=== PATIENT | male | born 1950 | race Caucasian/White ===

== ENCOUNTER 2017-08-30 14:40 | Inpatient (IN) | payer OTHER, MEDICARE ==
[~2017-08-30] VITALS: Ht 177.8 cm; Wt 75.0 kg
[2017-08-30 14:49] VITALS: BP 148/61; PULSE 75; RESP 18; TEMP 98; O2SAT 97
--- NOTE | 2017-08-30 15:02 | PD ---
HPI Chief Complaint: Alcohol/Drug Intoxication Time Seen by Provider: 14:58 Travel History International Travel<30 days: No Contact w/Intl Traveler<30days: No Traveled to known affect area: No History of Present Illness HPI This patient is brought in by paramedics. He is a alcoholic who drinks on a daily basis. He was drinking a lot of drinks today and stumbling around the beach and some bystanders called paramedics. He has no complaints. He admits to drinking heavily. He denies intentional overdose or any drug use. He denies injury other than abrasions to his knees. He has no knee pain. Symptom severity is mild. No alleviating factors. Symptoms exacerbated by his alcoholism. Duration 1 day PFS Social History Alcohol Use: Yes Tobacco Use: Yes Allergies-Medications (Allergen,Severity, Reaction): Coded Allergies: No Known Allergies (Unverified , 08/30/17) Reported Meds & Prescriptions Reported Meds & Active Scripts Active No Active Prescriptions or Reported Medications Review of Systems General / Constitutional: No: Fever Eyes: No: Visual changes HENT: No: Headaches Cardiovascular: No: Chest Pain or Discomfort Respiratory: No: Shortness of Breath Gastrointestinal: No: Abdominal Pain Genitourinary: No: Dysuria Musculoskeletal: No: Pain Skin: No Rash Neurologic: No: Weakness Psychiatric: Positive: Substance Abuse, No: Depression Endocrine: No: Polydipsia Hematologic/Lymphatic: No: Easy Bruising Physical Exam Narrative GENERAL: Disheveled reduced well-developed patient in no apparent distress. SKIN: Focused skin assessment reveals no rash and nodules. Skin is Warm and dry. HEAD: Atraumatic. Normocephalic. EYES: Pupils equal and round. No scleral icterus. No injection or drainage. ENT: No nasal bleeding or discharge. Mucous membranes pink and moist. NECK: Trachea midline. No JVD. No midline tenderness CARDIOVASCULAR: Regular rate and rhythm. No murmur appreciated. RESPIRATORY: No accessory muscle use. Clear to auscultation. Breath sounds equal bilaterally. GASTROINTESTINAL: Abdomen soft, non-tender, nondistended. Hepatic and splenic margins not palpable. MUSCULOSKELETAL: No obvious deformities. No clubbing. No cyanosis. No edema. Minor abrasions to both knees without tenderness NEUROLOGICAL: Awake and alert. No obvious cranial nerve deficits. Motor grossly within normal limits. Normal speech. PSYCHIATRIC: Appropriate mood and affect; insight and judgment reduced. Data Data Last Documented VS Vital Signs Date Time Temp Pulse Resp B/P (MAP) Pulse Ox O2 Delivery O2 Flow Rate FiO2 08/30/17 14:49 98.0 75 18 148/61 (90) 97 MDM Medical Decision Making Medical Screen Exam Complete: Yes Emergency Medical Condition: Yes Medical Record Reviewed: Yes Differential Diagnosis Alcohol intoxication, alcoholism, malingering Narrative Course I have reviewed the patient's electronic medical record. Patient appears somewhat intoxicated and by his admission was drinking. This is his usual behavior. He denies any complaint or injury or pain. I do not see much indication for significant emergency workup at this time I am going to allow him to sleep in the ER for a while to sober up. When he can properly walk and talk he will be discharged Will be advised to consider [facility] alcohol rehab services and follow- up with primary care Diagnosis Primary Impression: Alcohol intoxication Qualified Codes: F10.929 - Alcohol use, unspecified with intoxication, unspecified Additional Instructions: The patient was advised to follow up with their physician and return if they worsen. Avoid alcohol binging Consider [facility] alcohol rehab services Med/Other Pt SpecificInfo: Other Scripts No Active Prescriptions or Reported Meds Disposition: 01 DISCHARGE HOME Condition: Stable Juan C Hernandez MD Aug 30, 2017 15:02
--- NOTE | 2017-08-30 16:43 | RADRPT ---
EXAM DATE/TIME: 08/30/2017 16:18 [facility] COMPARISON: No previous studies available for comparison. INDICATIONS : Pt states he does not remember any trauma and that "he was just trying to have a good time but does n ot remeber what might have happened". MEDICAL HISTORY : None. SURGICAL HISTORY : None. ENCOUNTER: Initial ACUITY: 1 day PAIN SCORE: 10/10 LOCATION: Right chest Ribs. FINDINGS: Multiple views of the right ribs were performed. There is right 7 through 10 rib fractures. No dest ructive lesions or areas of periosteal thickening are seen. Expiratory view of the chest is negative for pneumothorax. The mediastinal structures are midline. CONCLUSION: Right 7 through 10 rib fractures. No pneumothorax. Jassi Crews MD on August 30, 2017 at 16:39 Board Certified Radiologist. This report was verified electronically.
[2017-08-30] MEDS ORDERED: MORPHINE SULFATE 2 MG/ML SYRINGE IV PUSH ONE (17:15)
[2017-08-30 17:26] VITALS: BP 162/70; PULSE 79; RESP 18; O2SAT 97
[2017-08-30 17:27] LABS: AUTOMATED NEUTROPHIL # 8.9 TH/MM3 (1.8-7.7); BASOPHIL # 0.2 TH/MM3 (0-0.2); BASOPHIL % 1.4 % (0.0-2.0); EOSINOPHIL # 0.1 TH/MM3 (0-0.4); EOSINOPHIL % 0.7 % (0.0-4.0); HEMATOCRIT 38.4 % (39.0-51.0); HEMOGLOBIN 12.8 GM/DL (13.0-17.0); LYMPHOCYTE # 1.3 TH/MM3 (1.0-4.8); MEAN CELL VOLUME 93.3 FL (80.0-100.0); MEAN CORPUSCULAR HGB CONC 33.2 % (32.0-36.0); MEAN PLATELET VOLUME 7.6 FL (7.0-11.0); MONO % 3.8 % (0.0-8.0); MONOCYTE # 0.4 TH/MM3 (0-0.9); NEUT % 82.1 % (16.0-70.0); PLATELET COUNT 418 TH/MM3 (150-450); RED BLOOD COUNT 4.11 MIL/MM3 (4.50-5.90); RED CELL DISTRIBUTION WIDTH 19.6 % (11.6-17.2); WHITE BLOOD COUNT 10.8 TH/MM3 (4.0-11.0)
[2017-08-30 17:36] LABS: PROTHROMBIN TIME - PATIENT 10.2 SEC (9.8-11.6)
[2017-08-30 17:47] LABS: ALBUMIN 3.8 GM/DL (3.4-5.0); ALT (GPT) 23 U/L (12-78); AST (GOT) 25 U/L (15-37); BICARBONATE 21.6 MEQ/L (21.0-32.0); BLOOD UREA NITROGEN 11 MG/DL (7-18); CALCIUM 8.6 MG/DL (8.5-10.1); CHLORIDE 110 MEQ/L (98-107); CREATININE 0.95 MG/DL (0.60-1.30); GLOMERULAR FILTRATION RATE 79 ML/MIN (>89); GLUCOSE,RANDOM 91 MG/DL (74-106); SODIUM (NA) 142 MEQ/L (136-145)
[2017-08-30 17:51] LABS: ALKALINE PHOSPHATASE 66 U/L (45-117); TOTAL BILIRUBIN ADULT 0.1 MG/DL (0.2-1.0); TOTAL PROTEIN 7.6 GM/DL (6.4-8.2)
[2017-08-30] MEDS ORDERED: IOHEXOL 350 MG/ML 10 ML VIAL (for RAD DIAG) IVCONTRAST ONE (18:43)
--- NOTE | 2017-08-30 19:02 | RADRPT ---
EXAM DATE/TIME: 08/30/2017 18:37 [facility] COMPARISON: RIBS RIGHT(W PA CXR MIN 3VWS), August 30, 2017, 16:18. INDICATIONS : Trauma; fall. IV CONTRAST: 96 cc Omnipaque 350 (iohexol) IV ; Cumulative dose for multiple exams. ORAL CONTRAST: No oral contrast ingested. RADIATION DOSE: 7.46 CTDIvol (mGy) ; Combined studies - Thorax/Abdomen/Pelvis MEDICAL HISTORY : None SURGICAL HISTORY : None. ENCOUNTER: Initial ACUITY: 1 day PAIN SCALE: 5/10 LOCATION: abdomen TECHNIQUE: Volumetric scanning of the abdomen and pelvis was performed. Using automated exposure control and ad justment of the mA and/or kV according to patient size, radiation dose was kept as low as reasonably achievable to obtain optimal diagnostic quality images. DICOM format image data is available electro nically for review and comparison. FINDINGS: LOWER LUNGS: The visualized lower lungs are clear. LIVER: Homogeneous density without lesion. There is no dilation of the biliary tree. No calcified gallston es. SPLEEN: Normal size without lesion. PANCREAS: Within normal limits. KIDNEYS: Normal in size and shape. There is no mass, stone or hydronephrosis on the left. Nonobstructing 5 mm calculus.. ADRENAL GLANDS: Within normal limits. VASCULAR: There is no aortic aneurysm. BOWEL/MESENTERY: The stomach, small bowel, and colon demonstrate no acute abnormality. There is no free intraperitone al air or fluid. ABDOMINAL WALL: Within normal limits. RETROPERITONEUM: There is no lymphadenopathy. BLADDER: No wall thickening or mass. REPRODUCTIVE: Within normal limits. INGUINAL: There is no lymphadenopathy or hernia. MUSCULOSKELETAL: Lower right-sided rib fractures. CONCLUSION: 1. No abdominal visceral injury. 2. Lower right-sided rib fractures. 3. Nonobstructing right renal calculus. Jassi Crews MD on August 30, 2017 at 18:56 Board Certified Radiologist. This report was verified electronically.
--- NOTE | 2017-08-30 19:06 | RADRPT ---
EXAM DATE/TIME: 08/30/2017 18:37 [facility] COMPARISON: RIBS RIGHT(W PA CXR MIN 3VWS), August 30, 2017, 16:18. No previous studies available for comparison. INDICATIONS : Trauma; fall. IV CONTRAST: 96 cc Omnipaque 350 (iohexol) IV ; Cumulative dose for multiple exams. RADIATION DOSE: 7.46 CTDIvol (mGy) ; Combined studies - Thorax/Abdomen/Pelvis MEDICAL HISTORY : None SURGICAL HISTORY : None. ENCOUNTER: Initial ACUITY: 1 day PAIN SCALE: 5/10 LOCATION: chest TECHNIQUE: Volumetric scanning of the chest was performed. Using automated exposure control and adjustment of t he mA and/or kV according to patient size, radiation dose was kept as low as reasonably achievable to obtain optimal diagnostic quality images. DICOM format image data is available electronically for review and comparison. Follow-up recommendations for detected pulmonary nodules are based at a minimum on nodule size and pa tient risk factors according to Fleischner Society Guidelines. FINDINGS: LUNGS: There is no consolidation or pneumothorax. No concerning pulmonary nodule is visualized. PLEURA: There is no pleural thickening or pleural effusion. MEDIASTINUM: The heart and great vessels demonstrate no acute abnormality. There is no mediastinal or hilar lymph adenopathy. Coronary artery calcifications. AXILLAE: Within normal limits. No lymphadenopathy. SKELETAL: Within normal limits for patient age. MISCELLANEOUS: Right-sided rib fractures including displaced right seventh rib fracture. CONCLUSION: 1. Right sided rib fractures. 2. No pneumothorax. Jassi Crews MD on August 30, 2017 at 19:00 Board Certified Radiologist. This report was verified electronically.
--- NOTE | 2017-08-30 19:19 | PD ---
Data Data Last Documented VS Vital Signs Date Time Temp Pulse Resp B/P (MAP) Pulse Ox O2 Delivery O2 Flow Rate FiO2 08/30/17 17:26 79 18 162/70 (100) 97 Room Air 08/30/17 14:49 98.0 Orders Orders Ribs, Uni (W/Exp Cxr-Min 3vw) (08/30/17 16:04) Iv Access Insert/Monitor (08/30/17 17:05) Complete Blood Count With Diff (08/30/17 17:05) Comprehensive Metabolic Panel (08/30/17 17:05) Prothrombin Time / Inr (Pt) (08/30/17 17:05) Act Partial Throm Time (Ptt) (08/30/17 17:05) Alcohol (Ethanol) (08/30/17 17:05) Ct Thorax/ Chest W Iv Contrast (08/30/17 ) Ct Abd/Pel W Iv Contrast(Rout) (08/30/17 ) Morphine Inj (Morphine Inj) (08/30/17 17:15) Iohexol 350 Inj (Omnipaque 350 Inj) (08/30/17 18:43) Admit Order (Ed Use Only) (08/30/17 19:15) Vital Signs (Adult) Q4H (08/30/17 19:15) Diet Heart Healthy (08/31/17 Breakfast) Activity Oob With Assistance (08/30/17 19:15) Labs Laboratory Tests Test 08/30/17 17:15 White Blood Count 10.8 TH/MM3 Red Blood Count 4.11 MIL/MM3 Hemoglobin 12.8 GM/DL Hematocrit 38.4 % Mean Corpuscular Volume 93.3 FL Mean Corpuscular Hemoglobin 31.0 PG Mean Corpuscular Hemoglobin Concent 33.2 % Red Cell Distribution Width 19.6 % Platelet Count 418 TH/MM3 Mean Platelet Volume 7.6 FL Neutrophils (%) (Auto) 82.1 % Lymphocytes (%) (Auto) 12.0 % Monocytes (%) (Auto) 3.8 % Eosinophils (%) (Auto) 0.7 % Basophils (%) (Auto) 1.4 % Neutrophils # (Auto) 8.9 TH/MM3 Lymphocytes # (Auto) 1.3 TH/MM3 Monocytes # (Auto) 0.4 TH/MM3 Eosinophils # (Auto) 0.1 TH/MM3 Basophils # (Auto) 0.2 TH/MM3 CBC Comment DIFF FINAL Differential Comment Prothrombin Time 10.2 SEC Prothromb Time International Ratio 1.0 RATIO Activated Partial Thromboplast Time 22.9 SEC Blood Urea Nitrogen 11 MG/DL Creatinine 0.95 MG/DL Random Glucose 91 MG/DL Total Protein 7.6 GM/DL Albumin 3.8 GM/DL Calcium Level 8.6 MG/DL Alkaline Phosphatase 66 U/L Aspartate Amino Transf (AST/SGOT) 25 U/L Alanine Aminotransferase (ALT/SGPT) 23 U/L Total Bilirubin 0.1 MG/DL Sodium Level 142 MEQ/L Potassium Level 4.3 MEQ/L Chloride Level 110 MEQ/L Carbon Dioxide Level 21.6 MEQ/L Anion Gap 10 MEQ/L Estimat Glomerular Filtration Rate 79 ML/MIN Ethyl Alcohol Level 332 MG/DL MDM Supervised Visit with [facility]: No Narrative Course The patient was initially evaluated by the previous provider and signed out to me at approximately 5:00 PM at the beginning of my shift pending labs, CT thorax , CT abdomen pelvis, and disposition. See his note for further details. Briefly this is a 66-year-old male who was initially brought in by ambulance after being found to be intoxicated on the beach. The patient admitted to drinking a bunch of alcohol today. He admits to drinking alcohol daily. Initially the patient was too intoxicated to provide much of a history to the previous provider, however once he began to sober up he began to complain of right-sided chest wall pain. Chest x-ray and right-sided rib x-rays were ordered and show right seventh through 10th rib fractures with no pneumothorax. Labs and CT thorax and CT abdomen with and ordered by the previous provider and signed out to me to follow-up with. CT of the abdomen and pelvis show no visceral injury. CT of the thorax shows multiple right-sided rib fractures, no pneumothorax. Alcohol level was 332. On my assessment the patient is awake and alert with no focal deficits. He is not in any respiratory distress, however he states it is difficult for him to take a deep breath because of the pain. O2 saturation is 97% on room air. Given multiple rib fractures in this 66-year-old male with an alcohol level of 332, he will be admitted to the trauma service for at least overnight observation. Case discussed with trauma surgeon Dr. Stone who will admit the patient to his service. Diagnosis Primary Impression: Multiple rib fractures Qualified Codes: S22.41XA - Multiple fractures of ribs, right side, initial encounter for closed fracture Additional Impressions: Fall Qualified Codes: W19.XXXA - Unspecified fall, initial encounter Alcohol intoxication Qualified Codes: F10.929 - Alcohol use, unspecified with intoxication, unspecified Admitting Information Admitting Physician Requests: Admit Additional Instruction: The patient was advised to follow up with their physician and return if they worsen. Avoid alcohol binging Consider [facility] alcohol rehab services Scripts No Active Prescriptions or Reported Meds Disposition: 01 DISCHARGE HOME Condition: Stable Naveen Najera MD Aug 30, 2017 19:19
[2017-08-30] MEDS ORDERED: [UNRECOGNIZED DRUG - REMARK] (20:58)
[2017-08-30] MEDS ORDERED: BLOOD PRESSURE (20:58)
[2017-08-30 21:14] VITALS: BP 153/74; PULSE 68; RESP 20; TEMP 97.5; O2SAT 96
[2017-08-30] MEDS ORDERED: SODIUM CHLORIDE 0.9% FLUSH 10 ML FLUSH IV FLUSH PRN (21:30)
[2017-08-30] MEDS ORDERED: SODIUM CHLOR 0.9% 1000 ML INJ 1,000 ML IV SCH (21:30)
[2017-08-30] MEDS ORDERED: ONDANSETRON HCL 4 MG/2 ML VIAL IV PUSH PRN (21:30)
[2017-08-30] MEDS ORDERED: PANTOPRAZOLE SOD 40 MG DELAYED RELEASE TAB PO SCH (21:30)
[2017-08-30] MEDS ORDERED: NALOXONE HCL 0.4 MG/ML AMP IV PUSH PRN (21:30)
[2017-08-30] MEDS ORDERED: Post-op Orders (for Pharmacy) XX ONE (21:30)
[2017-08-30] MEDS ORDERED: MULTIVITAMIN INJ 10 ML, THIAMINE INJ 100 MG, FOLIC ACID INJ 1 MG in SODIUM CHLORID 0.9%... IV SCH (22:00)
[2017-08-30] MEDS: MORPHINE SULFATE 2 MG/ML SYRINGE IV PUSH PRN (23:07)
[2017-08-31] VITALS: BP 111/55; PULSE 74; RESP 20; TEMP 97.8; O2SAT 95
[2017-08-31] MEDS: MORPHINE SULFATE 2 MG/ML SYRINGE IV PUSH PRN ×2 (02:10→05:38)
[2017-08-31 05:01] VITALS: BP 143/68; PULSE 67; RESP 20; TEMP 97.8; O2SAT 100
--- NOTE | 2017-08-31 05:14 | RADRPT ---
EXAM DATE/TIME: 08/31/2017 04:08 [facility] COMPARISON: CT THORAX W CONTRAST, August 30, 2017, 18:37. INDICATIONS : chest trauma MEDICAL HISTORY : None. SURGICAL HISTORY : None. ENCOUNTER: Subsequent ACUITY: 2 days PAIN SCORE: Non-responsive. LOCATION: Bilateral chest FINDINGS: Non-consolidative patchy infiltrates in the right lower lung. The left lung is clear. Heart is uppe r limits normal size for supine portable technique. Both hemidiaphragms are well delineated. CONCLUSION: Patchy infiltrates in the right lower lung. Jaime Campbell MD on August 31, 2017 at 5:11 Board Certified Radiologist. This report was verified electronically.
[2017-08-31 06:51] LABS: AUTOMATED NEUTROPHIL # 5.4 TH/MM3 (1.8-7.7); BASOPHIL # 0.1 TH/MM3 (0-0.2); EOSINOPHIL # 0.1 TH/MM3 (0-0.4); HEMATOCRIT 41.6 % (39.0-51.0); HEMOGLOBIN 13.8 GM/DL (13.0-17.0); LYMPH % 21.4 % (9.0-44.0); LYMPHOCYTE # 1.6 TH/MM3 (1.0-4.8); MEAN CELL VOLUME 94.7 FL (80.0-100.0); MEAN CORPUSCULAR HEMOGLOBIN 31.6 PG (27.0-34.0); MEAN CORPUSCULAR HGB CONC 33.3 % (32.0-36.0); MEAN PLATELET VOLUME 8.7 FL (7.0-11.0); MONO % 5.9 % (0.0-8.0); MONOCYTE # 0.5 TH/MM3 (0-0.9); NEUT % 70.7 % (16.0-70.0); PLATELET COUNT 395 TH/MM3 (150-450); RED BLOOD COUNT 4.39 MIL/MM3 (4.50-5.90); RED CELL DISTRIBUTION WIDTH 19.3 % (11.6-17.2); WHITE BLOOD COUNT 7.7 TH/MM3 (4.0-11.0)
[2017-08-31 07:13] LABS: BICARBONATE 20.6 MEQ/L (21.0-32.0); CREATININE 0.8 MG/DL (0.60-1.30)
[2017-08-31] MEDS ORDERED: PERI PO (07:57)
[2017-08-31] MEDS ORDERED: MAGN30S PO (07:57)
[2017-08-31 08:00] VITALS: BP 193/84; PULSE 69; RESP 18; TEMP 97.4; O2SAT 98
[2017-08-31] MEDS ORDERED: KETOROLAC TROMETHAMINE 30 MG/ML (IVP) VIAL IV PUSH SCH (08:00)
[2017-08-31] MEDS ORDERED: ACETAMINOPHEN 1000 MG/100 ML 100 ML IV SCH (08:00)
[2017-08-31] MEDS ORDERED: LIDOCAINE HCL 5% PATCH T-DERMAL SCH (09:00)
[2017-08-31] MEDS ORDERED: SODIUM CHLORIDE 0.9% FLUSH 10 ML FLUSH IV FLUSH SCH (09:00)
[2017-08-31] MEDS ORDERED: MAGNESIUM HYDROXIDE SUSP 30 ML CUP PO SCH (09:00)
[2017-08-31] MEDS ORDERED: DOCUSATE SODIUM 50 MG/SENNA 8.6 MG TAB PO SCH (09:00)
--- NOTE | 2017-08-31 10:58 | MH ---
cc: Negrita Stone MD DATE OF ADMISSION: 08/30/2017 REASON FOR ADMISSION: Serial rib fractures of the 7th, 8th and 9th rib on the right and heavy intoxication. HISTORY OF PRESENT ILLNESS: This 66-year-old male who was found stumbling on the beach, was found to be heavily inebriated, was brought into the ER. On the workup, he was found to have a fracture of 7th, 8th and 9th rib on the right. He is now admitted for observation overnight and pain control. PAST MEDICAL HISTORY: Some sort of knee surgery. SOCIAL HISTORY: The patient drinks about self admittedly a half bottle of vodka a day and beer and smokes. He says that he is often drunk. PHYSICAL EXAMINATION: GENERAL: Reveals a 66-year-old male, inebriated barely answering any questions. HEENT: Normocephalic. No trauma to the head. Pupils equal and reactive. Extraocular muscles intact. NECK: Supple. Bilateral carotid pulses. No bruits. CHEST: Clear bilateral breath sounds. HEART: Regular rhythm. On palpation tender over the right rib cage. ABDOMEN: Active sounds. No rebound, no guarding, no masses. EXTREMITIES: Within normal limits. BACK: Normal. The patient has some bruising over his knees. IMPRESSION: The patient who is heavily inebriated with some rib fractures for overnight observation. MD BIJAL Amaya/MONIQUE , 10:41 AM , 10:57 AM
[2017-08-31] MEDS ORDERED: METH500T3 PO (11:16)
[2017-08-31] MEDS ORDERED: IBUP-232 PO (11:16)
[2017-08-31] MEDS ORDERED: LIDO1ADH4 T-DERMAL (11:16)
[2017-08-31] MEDS ORDERED: PERC5TAB12 PO (11:16)
[2017-08-31 12:00] VITALS: BP 222/102; PULSE 67; RESP 19; TEMP 97.2; O2SAT 98
[2017-08-31] MEDS ORDERED: METHOCARBAMOL 500 MG TAB PO SCH (14:00)
--- NOTE | 2017-08-31 15:00 | HHI.DS ---
Discharge Summary Admission Date Aug 30, 2017 at 7:17 pm Discharge Date: Aug 31, 2017 Admitting Diagnosis Multiple rib fractures, alcohol intoxication, fall Brief History ?Fall. Found intoxicated on the beach. CBC/BMP: 08/31/17 0405 08/31/17 0405 Significant Findings Laboratory Tests Test 08/30/17 17:15 08/31/17 04:05 Red Blood Count 4.11 MIL/MM3 (4.50-5.90) 4.39 MIL/MM3 (4.50-5.90) Hemoglobin 12.8 GM/DL (13.0-17.0) Hematocrit 38.4 % (39.0-51.0) Red Cell Distribution Width 19.6 % (11.6-17.2) 19.3 % (11.6-17.2) Neutrophils (%) (Auto) 82.1 % (16.0-70.0) 70.7 % (16.0-70.0) Neutrophils # (Auto) 8.9 TH/MM3 (1.8-7.7) Activated Partial Thromboplast Time 22.9 SEC (24.3-30.1) Total Bilirubin 0.1 MG/DL (0.2-1.0) Chloride Level 110 MEQ/L (98-107) 108 MEQ/L (98-107) Estimat Glomerular Filtration Rate 79 ML/MIN (>89) Ethyl Alcohol Level 332 MG/DL (0-5) Random Glucose 44 MG/DL (74-106) Carbon Dioxide Level 20.6 MEQ/L (21.0-32.0) Imaging Last 24 hours Impressions Chest X-Ray 08/31/17 0600 Signed Impressions: Service Date/Time: Thursday, August 31, 2017 04:08 - CONCLUSION: Patchy infiltrates in the right lower lung. Jaime Campbell MD Ribs X-Ray 08/30/17 1604 Signed Impressions: Service Date/Time: Wednesday, August 30, 2017 16:18 - CONCLUSION: Right 7 through 10 rib fractures. No pneumothorax. Jassi Crews MD PE at Discharge GENERAL: This is a 66-year-old male sitting up in bed. No distress noted. SKIN: Warm and dry. HEAD: Atraumatic. Normocephalic. EYES: PERRLA ENT: No nasal bleeding or discharge. Mucous membranes pink and moist. NECK: Trachea midline. No JVD. CARDIOVASCULAR: Regular rate and rhythm. RESPIRATORY: No accessory muscle use. Lungs are clear to auscultation. Breath sounds equal bilaterally. No distress or dyspnea. GASTROINTESTINAL: BS + x 4 quads. Abdomen soft, non-tender, nondistended. MUSCULOSKELETAL: Extremities without cyanosis, or edema. + peripheral pulses x 4 extremities. Warm with good capillary refill and sensation. MAEW. NEUROLOGICAL: Awake and alert. Normal speech and pattern. Hospital Course ANVIK: This is a 66-year-old male who was found intoxicated on the beach. Once he sobered up, he c/o right chest pain. (ETOH = 332) INJURIES: RIGHT rib fx (7-10) PMHx: ETOH abuse Consults: Case management. A.m. glucose via labs equals 44, patient was given apple juice and blood sugar increased to 68, then a repeat was 79. Patient then ate breakfast, and repeat blood glucose = 187. This is most likely due to lack of alcohol during overnight observation. Patient is awake, alert, and in no distress. Patient is encouraged to follow- up with PCP outpatient. Patient would like to go home. The patient is now tolerating a po diet. Eating and drinking well. Pain is being managed well with PO pain medications, and patient is being a provided with a script for pain meds upon discharge. (NO driving while taking narcotic pain medication enforced to patient. Additionally no drinking alcohol while taking narcotic pain medications) We have recommended to patient to continue with stool softeners while taking narcotic pain medications to prevent constipation. Pt has been participating in PT while admitted at [facility] and has been ambulating with their assistance and independently . No PT needs at home All follow up appointments have been provided and discussed with the patient. It is recommended that the patient keeps all his follow up appointments for continued recovery. Patient's condition and plan of care discussed with collaborating trauma surgeon. He is agreeable to plan for discharge today. Therefore, the patient is stable to be safely discharged home from a trauma surgery standpoint. Thank you for allowing us to participate in his care. We wish Ben the best in his recovery. RIGHT rib fx (7-10) Oxygen as needed Supportive care Aggressive pulmonary toileting Pain management PT ordered Encourage out of bed EtOH abuse Monitor for DTs Discussed refraining from alcohol Recommended ETOH abuse treatment Pt Condition on Discharge: Stable Discharge Disposition: Discharge Home Discharge Instructions DIET: Follow Instructions for: As Tolerated, No Restrictions Speech Therapy-Diet Recommends: Regular Activities you can perform: Regular-No Restrictions Activities to Avoid: Driving for 24 hrs, Concussion Sports, Contact Sports, Lifting/Bending, Prolonged Standing, Strenuous Activity Other Activity Instructions: No driving while taking narcotic pain meds DO NOT consume alcohol while taking narcotic pain meds Yazmin Frances Aug 31, 2017 3:00 pm
[2017-08-31] MEDS ORDERED: REMOVE OLD LIDOCAINE PATCH T-DERMAL SCH (21:00)
== END 2017-08-31 13:13 | disposition home or self-care (01) | DRG 185 ==
LOC: NEPD 14:40 → NEDA 19:17 → N06A 20:39
PROVIDERS: ADMIT Surgery; ATTEND Surgery
DX: S22.41XA Multiple fractures of ribs, right side, initial encounter for closed fracture (principal); F10.129 Alcohol abuse with intoxication, unspecified; Y90.7 Blood alcohol level of 200-239 mg/100 ml
CPT/HCPCS: 71045; 71101; 71260; 74177; 80048; 80053; 80307; 82948; 85025; 85610; 85730; 94150; 96374; J1885; J2270; J3411; J7030; J7040; Q9967